=== PATIENT | female | born 1990 | race African-American/Black ===

== ENCOUNTER 2024-09-11 18:17 | Emergency (ER) | payer BC, SELFPAY ==
[2024-09-11 21:15] LABS: Bacteria/HPF None Seen HPF (None Seen); Bilirubin Negative (Negative); Blood, Urine Negative (Negative); CAUTI Indications for Culture Dysuria,urgency,freq; Clarity Clear (Clear); Glucose, Urine (Dipstick) Greater than 1000 mg/dL (Negative); Ketone, Urine Negative (Negative); Leukocyte 75 Leu/uL (Negative); Nitrite Negative (Negative); Protein, Urine (Dipstick) Negative (Neg-Trace); RBC/HPF 0-3 HPF (0-3); Specific Gravity, Urine 1.036 (1.002-1.036); Squamous Epithelial 0-3 HPF (0-3); Urobilinogen Normal mg/dL (Less than 2); WBC/HPF 0-3 HPF (0-3); pH, Urine 7.5 (5.0-9.0)
[2024-09-11 21:17] LABS: Urine Culture Reflex No No
[2024-09-11] MEDS ORDERED: Fluconazole 100 MG TAB ONE ×2 (22:13→22:15)
== END 2024-09-11 22:25 | disposition home or self-care (01) ==
LOC: ERS 18:17
DX: N39.0 Urinary tract infection, site not specified (principal); B37.31 Acute candidiasis of vulva and vagina; N76.0 Acute vaginitis
CPT/HCPCS: 81001; 87480; 87510; 87660; 99282